=== PATIENT | male | born 1945 | race Caucasian/White ===

== ENCOUNTER → 2017-12-30 | Outpatient (CLI) | payer MEDICARE, OTHER | LOC: LAB SHORT 08:04 → PLD 08:04 | DX: L57.0 Actinic keratosis (principal); R23.4 Changes in skin texture | CPT/HCPCS: 88305 ==

== ENCOUNTER 2018-12-13 10:25 | Day surgery (SDC) | payer MEDICARE, OTHER ==
[~2018-12-13] VITALS: Ht 177.8 cm; Wt 109.1 kg
[~2018-12-13 10:25] MED LIST: ALLO300 PO; Amlodipine Bes2.5 MG PO; Aspirin EC81 MG PO; Glucophage1000 MG PO; HYDCHL25 PO; KRILL OIL 3001 EACH PO; ONE DAILY MEN'1 EACH PO; SIMV40 PO; TAMS.4ER PO; Zestril40 MG PO
[2018-12-13] MEDS ORDERED: PROBIOTIC1 EAC4 (11:07)
--- NOTE | 2018-12-13 12:31 | NUR ---
12/13/18 1231 Lynne Blake SIMETHICONE USED DURING PROCEDURE.
== END 2018-12-13 13:28 | disposition home or self-care (01) ==
LOC: ORSCSDS 10:25
PROVIDERS: Internal Medicine Gastroenterology
PROC: 0DBK8ZX Excision of Ascending Colon, Via Natural or Artificial Opening Endoscopic, Diagnostic (ICD-10-PCS; principal; 2018-12-13 12:00)
PROC: 0DBL8ZX Excision of Transverse Colon, Via Natural or Artificial Opening Endoscopic, Diagnostic (ICD-10-PCS; principal; 2018-12-13 12:00)
PROC: 0DBP8ZX Excision of Rectum, Via Natural or Artificial Opening Endoscopic, Diagnostic (ICD-10-PCS; principal; 2018-12-13 12:00)
DX: Z12.11 Encounter for screening for malignant neoplasm of colon (principal); Z86.010 Personal history of colon polyps; D12.3 Benign neoplasm of transverse colon; K63.5 Polyp of colon; K62.1 Rectal polyp; K57.30 Diverticulosis of large intestine without perforation or abscess without bleeding; K64.8 Other hemorrhoids; E11.9 Type 2 diabetes mellitus without complications; E78.5 Hyperlipidemia, unspecified; G47.33 Obstructive sleep apnea (adult) (pediatric); I10 Essential (primary) hypertension; Z79.899 Other long term (current) drug therapy; Z79.82 Long term (current) use of aspirin
CPT/HCPCS: 82947; 88305; J2250; J2704; J7120